=== PATIENT | male | born 1990 | race Caucasian/White ===

== ENCOUNTER 2020-10-24 19:14 | Emergency (ER) | payer SELFPAY ==
[~2020-10-24] VITALS: Ht 177.8 cm; Wt 97.5 kg
[2020-10-24] MEDS ORDERED: KETOROLAC TROMETHAMINE 60 MG/2 ML VIAL IM ONE (20:30)
[2020-10-24] MEDS ORDERED: DEXAMETHASONE 4 MG TAB PO SCH (21:00)
[2020-10-24] MEDS ORDERED: METHOCARBAMOL750 MG PO (21:02)
== END 2020-10-24 21:08 | disposition home or self-care (01) ==
LOC: ER 20:20
DX: M54.5 Low back pain (principal)
CPT/HCPCS: 99282; J1885

== ENCOUNTER 2024-04-22 16:59 | Emergency (ER) | payer BC, OTHER ==
[~2024-04-22] VITALS: Ht 177.8 cm; Wt 124.7 kg
[~2024-04-22 16:59] MED LIST: METHOCARBAMOL750 MG PO
[2024-04-22 17:35] VITALS: PULSE 74; RESP 20; TEMP 98.3
[2024-04-22 18:07] LABS: BASOPHILS % 0.4 % (0.0-1.0); EOSINOPHILS % 0.2 % (0.0-6.0); HEMATOCRIT 41.1 % (38.2-49.6); HEMOGLOBIN 14.5 g/dL (14.0-18.0); LYMPHOCYTES # (AUTO) 1.1 (1.0-3.2); LYMPHOCYTES % 11.4 % (18.0-39.1); MEAN CORPUSCULAR HEMOGLOBIN 29.2 pg (28-32); MEAN CORPUSCULAR HGB CONC 35.3 g/dL (31-35); MEAN CORPUSCULAR VOLUME 82.9 fL (81-99); MONOCYTES # (AUTO) 0.7 (0.2-0.8); MONOCYTES % 6.5 % (4.4-11.3); NEUTROPHILS # (AUTO) 8.1 (2.1-6.9); NEUTROPHILS % 81.3 % (38.7-80.0); PLATELET COUNT 264 x10e3/uL (140-360); RED BLOOD COUNT 4.96 x10e6/uL (4.3-5.7); RED CELL DISTRIBUTION WIDTH 12.6 % (11.7-14.4); WHITE BLOOD COUNT 9.97 x10e3/uL (4.8-10.8)
[2024-04-22 18:36] LABS: ALANINE AMINOTRANSFERASE 61 IU/L (0-55); ALBUMIN 4.5 g/dL (3.5-5.0); ALBUMIN/GLOBULIN RATIO 1.7 (0.8-2.0); ALKALINE PHOSPHATASE 56 IU/L (40-150); ANION GAP 12.8 mmol/L (8-16); BILIRUBIN,TOTAL 0.5 mg/dL (0.2-1.2); BLOOD UREA NITROGEN 14 mg/dL (7-26); BUN/CREATININE RATIO 13 (6-25); CALCIUM 9.2 mg/dL (8.4-10.2); CARBON DIOXIDE 23 mmol/L (22-29); CHLORIDE 108 mmol/L (98-107); CREATINE KINASE 257 IU/L (30-200); CREATININE, SERUM 1.07 mg/dL (0.72-1.25); EST GLOMERULAR FILTRATION RATE 94 ML/MIN (>=60); GLUCOSE 100 mg/dL (74-118); POTASSIUM 3.8 mmol/L (3.5-5.1); SODIUM 140 mmol/L (136-145); TOTAL PROTEIN 7.1 g/dL (6.5-8.1)
[2024-04-22 18:37] LABS: AMPHETAMINES SCREEN,URINE NEGATIVE (NEGATIVE); BENZODIAZEPINES SCREEN,URINE NEGATIVE (NEGATIVE); CANNABINOIDS SCREEN,URINE POSITIVE (NEGATIVE); COCAINE SCREEN,URINE NEGATIVE (NEGATIVE); METHADONE SCREEN, URINE NEGATIVE (NEGATIVE); OPIATES SCREEN,URINE NEGATIVE (NEGATIVE); PHENCYCLIDINE SCREEN,URINE NEGATIVE (NEGATIVE)
[2024-04-22 18:43] LABS: TROPONIN I < 0.001 ng/mL (0-0.300)
[2024-04-22] MEDS ORDERED: IOPAMIDOL 370 MG/ML 100 ML INFUS..BTL INJ ONE (18:43)
[2024-04-22] MEDS ORDERED: SODIUM CHLORIDE 0.9% 100 ML ONE (18:43)
[2024-04-22 23:00] VITALS: BP 154/81; PULSE 53; RESP 18; TEMP 97.8; O2SAT 97
== END 2024-04-22 21:15 | disposition home or self-care (01) ==
LOC: ER 17:25
DX: R06.02 Shortness of breath (principal); R07.89 Other chest pain; I49.8 Other specified cardiac arrhythmias; F41.9 Anxiety disorder, unspecified
CPT/HCPCS: 36415; 71275; 80053; 80307; 82550; 83690; 83880; 84484; 85025; 93005; 99284; J7050; Q9967